=== PATIENT | female | born 1975 | race Hispanic/Latino ===

== ENCOUNTER 2022-01-23 15:49 | Emergency (ER) | payer BC, MEDICAID ==
[~2022-01-23] VITALS: Ht 165.1 cm; Wt 99.8 kg
[2022-01-23 15:54] VITALS: BP 148/84
[2022-01-23] MEDS ORDERED: GABA300C PO (16:15)
[2022-01-23] MEDS ORDERED: CYCL-309 PO (16:15)
[2022-01-23] MEDS ORDERED: IBUP-1493 PO (16:15)
[2022-01-23] MEDS ORDERED: CYCLOBENZAPRINE HCL 10 MG TABLET PO ONE (16:30)
[2022-01-23] MEDS ORDERED: KETOROLAC 30MG VIAL (30MG/ML) IM ONE (16:30)
[2022-01-23] MEDS ORDERED: GABAPENTIN 100 MG CAPSULE PO SCH (16:30)
== END 2022-01-23 16:59 | disposition home or self-care (01) ==
LOC: EDH 15:49
DX: M54.50 Low back pain, unspecified (principal)
CPT/HCPCS: 99284; 96372; J1885